=== PATIENT | male | born 1955 | race Caucasian/White ===

== ENCOUNTER 2018-10-16 10:13 | Inpatient (IN) | payer OTHER ==
[~2018-10-16] VITALS: Ht 185.4 cm; Wt 99.3 kg
[2018-10-16 10:19] VITALS: Ht 185.4 cm; Wt 99.3 kg
--- NOTE | 2018-10-16 10:29 | NUR ---
PT BIB SELF C/C RT ARM REDNESS WITH SWELLING X 2 DAYS STS ON PO ATB BUT REDNESS IS SPREADING AWAITING FOR DR TO [facility]
--- NOTE | 2018-10-16 10:34 | NUR ---
DR DUFF AT BEDSIDE TO EVAL
--- NOTE | 2018-10-16 10:51 | NUR ---
PLEASE ENTER FULL NAMES OF CLOUD OPERATIONS ENGINEER/RN Patient data collected by (CLOUD OPERATIONS ENGINEER):ERIC LOCKE Assessment reviewed and completed by (RN):KRAIG WEBBER
--- NOTE | 2018-10-16 11:09 | NUR ---
TAKEN TO RADIOLOGY FOR XRAY
[2018-10-16 11:17] LABS: CALCIUM 9.5 mg/dL (8.5-10.1); CARBON DIOXIDE 27.6 mmol/L (21-32); CHLORIDE SERUM 99 mmol/L (98-107); CREATININE SERUM 1.1 mg/dL (0.7-1.3); GFR1 > 60 mL/min; GLUCOSE SERUM 127 mg/dL (74-106); POTASSIUM SERUM 3.5 mmol/L (3.5-5.1); SODIUM SERUM 137 mmol/L (136-145)
--- NOTE | 2018-10-16 11:21 | NUR ---
BACK FROM XRAY
[2018-10-16 11:22] LABS: ALKALINE PHOSPHATASE 73 U/L (46-116); ALT/SGPT 24 U/L (16-63); AST/SGOT 14 U/L (15-37); BILIRUBIN TOTAL 1.1 mg/dL (0.20-1.00); TOTAL PROTEIN, SERUM 8.1 g/dL (6.4-8.2)
[2018-10-16 11:31] LABS: microscopic required? NO
[2018-10-16 11:35] LABS: BASOPHIL % 0.2 % (0-2); PLATELET COUNT 160 x10^3mcL (130-400); RED CELL DISTRIBUTION WIDTH 12.7 % (11.5-14.5)
[2018-10-16] MEDS ORDERED: BACDS PO (11:36)
[2018-10-16] MEDS ORDERED: ASPIR 8181 MG PO (11:36)
[2018-10-16] MEDS ORDERED: LISINOPRIL-HYDR1 TA2 PO (11:37)
[2018-10-16] MEDS ORDERED: SIMVASTATIN20 M1 PO (11:37)
[2018-10-16] MEDS ORDERED: METFORMIN HCL1000 MG PO (11:37)
[2018-10-16] MEDS ORDERED: [UNRECOGNIZED DRUG - OTHER] PO (11:37)
[2018-10-16 11:46] LABS: urine erythrocyte NEGATIVE (NEGATIVE)
--- NOTE | 2018-10-16 12:05 | NUR ---
REPORT GIVEN TO VALENTINO VEGA
--- NOTE | 2018-10-16 12:23 | NUR ---
PLEASE ENTER FULL NAMES OF LEAN MANUFACTURING SPECIALIST/RN Patient data collected by (LEAN MANUFACTURING SPECIALIST):ERIC LOCKE Assessment reviewed and completed by (RN):KRAIG WEBBER
[2018-10-16 12:55] VITALS: BP 126/89
--- NOTE | 2018-10-16 12:55 | NUR ---
REC PT VIA GURENY, AMB TO BED. AA/O X4, BREATHING EVEN AND UNLABOARED ON RA. NO ACUTE RESP DISTRESS OR SOB NOTED. MEDSURG. DENIES ANY CP OR PRESSURE. PULSES PRESENT TO ALL EXT. SWELLING NOTED AND OUTLINED TO RIGHT ARM, REDNESS NOTED/ WARM TO TOUCH. BOWEL SOUNDS ACTIVE IN ALL FOUR QUADS. VOIDS FREELY. LAST BM 10/16. IV TO THE LAC 20G/ HEPLOCKED NO REDNESS OR SWELLING NOTED. CALL LIGHT IN REACH. BED IN LOW POSITION. WILL CONTINUE PLAN OF CARE.
[2018-10-16 13:40] VITALS: BP 126/89
[2018-10-16 16:47] VITALS: BP 122/86
--- NOTE | 2018-10-16 16:54 | NUR ---
TRIED TO TAKE PT ACCU CHECK, STATED HE TOOK IT ALREADY WITH OWN MACHINE + OUR OWN MACHINE WAS NOTED WORKING. PT ACCU WAS 128. WILL CONTINUE TO MONITOR.
--- NOTE | 2018-10-16 19:00 | NUR ---
NO ACUTE CHANGES. WILL ENDORSE TO INCOMING RN.
--- NOTE | 2018-10-16 20:32 | NUR ---
PT CURRENTLY RESTING IN BED, NO ACUTE DISTRESS. A/O X4. NO TELE, MED/SURG. DENIES CHEST PAIN. PULSES PALPABLE IN ALL EXTREMITIES, RUE ERRYTHEMA AND SWELLING NOTED. LUNG SOUNDS CTA BILATERALLY, DENIES SOB. BOWEL SOUNDS ACTIVE, LAST BM 10/16/18. VOIDING WELL. AMBULATORY. IV PATENT AND INTACT. BED IN LOWEST POSITION, SIDE RAILS UP X2, CALL LIGHT WITHIN REACH. WILL CONTINUE TO MONITOR.
[2018-10-16 20:40] VITALS: BP 137/89
--- NOTE | 2018-10-17 00:24 | NUR ---
PT CURRENTLY RESTING IN BED, NO ACUTE DISTRESS. WILL CONTINUE TO MONITOR.
[2018-10-17 05:55] VITALS: BP 99/75
--- NOTE | 2018-10-17 06:29 | NUR ---
PT SLEPT PERIODICALLY THROUGHOUT NIGHT, NO ACUTE DISTRESS. ALL NEEDS MET AND ATTENDED TO. NO SIGNIFICANT CHANGES. IV PATENT AND INTACT. BED IN LOWEST POSITION, SIDE RAILS UP X2, CALL LIGHT WITHIN REACH. WILL ENDORSE CARE TO ONCOMING NURSE.
[2018-10-17 06:43] LABS: CARBON DIOXIDE 27.1 mmol/L (21-32); CHLORIDE SERUM 102 mmol/L (98-107); GFR1 > 60 mL/min; GLUCOSE SERUM 146 mg/dL (74-106); POTASSIUM SERUM 4.5 mmol/L (3.5-5.1); SODIUM SERUM 139 mmol/L (136-145)
--- NOTE | 2018-10-17 07:15 | NUR ---
AAO X4.DENIES ANY PAIN/DISCOMFORT.LUNGS CLEAR.PT NONE-TELE.IV SALINE LOCKED.R ARM WITH ERRYTHMA AND TRACE EDEMA.CALL LIGHT WITHIN REACH.INSTRUCTED TO CALL FOR ANY PAIN/DISCOMFORT.WILL CONTINUE TO MONITOR PT.
[2018-10-17 07:42] LABS: PLATELET COUNT 148 x10^3mcL (130-400); RED CELL DISTRIBUTION WIDTH 12.7 % (11.5-14.5)
[2018-10-17 07:43] LABS: BASOPHIL % 0.7 % (0-2)
[2018-10-17 09:00] VITALS: BP 141/98
[2018-10-17 13:10] VITALS: BP 141/98
== END 2018-10-17 15:05 | disposition home or self-care (01) | DRG 383 ==
LOC: ED 10:13 → MU 11:30
PROVIDERS: Emergency Medicine; ADMIT Internal Medicine Pulmonary Disease
DX: L03.113 Cellulitis of right upper limb (principal); E11.9 Type 2 diabetes mellitus without complications; E78.5 Hyperlipidemia, unspecified; E78.00 Pure hypercholesterolemia, unspecified; I10 Essential (primary) hypertension; Z79.84 Long term (current) use of oral hypoglycemic drugs
CPT/HCPCS: 82962; 90715; J0690; J1644; J7050; Q0092